=== PATIENT | female | born 1985 | race Hispanic/Latino ===

== ENCOUNTER 2018-04-05 19:53 | Emergency (ER) | payer OTHER ==
[2018-04-05 20:14] VITALS: PULSE 73; RESP 17; TEMP 98.7; O2SAT 98
[2018-04-05] MEDS ORDERED: Lidocaine PF 2% (5 ml) Inj (For Cardiac Arrhy) IV STA (20:32)
--- NOTE | 2018-04-05 20:39 | ED PDOC ---
Upper Extremity Pain/Injury Time Seen by Provider: 04/05/18 20:17 Chief Complaint (Nursing): Finger,Hand,&Wrist Chief Complaint (Provider): left index finger injury History Per: Patient History/Exam Limitations: no limitations Onset/Duration Of Symptoms: Hrs (today) Current Symptoms Are (Timing): Still Present Additional Complaint(s): Lucina Jolly is a 32 year old right hand dominant female, with no significant past medical history, who presents to the emergency department for evaluation of left index finger laceration. Patient reports cutting her left index finger with a knife while making dinner earlier this evening. She initially went to [facility] but was sent to the ED for evaluation. Patient states bleeding has not stopped. Tetanus is up to date. She denies any numbness or tingling to affected area. PMD: None Past Medical History Reviewed: Historical Data, Nursing Documentation, Vital Signs Vital Signs: Last Vital Signs Temp 98.7 F 04/05/18 20:10 Pulse 73 04/05/18 20:10 Resp 17 04/05/18 20:10 BP Pulse Ox 98 04/05/18 20:10 - Medical History PMH: No Chronic Diseases - Surgical History Surgical History: No Surg Hx - Family History Family History: States: No Known Family Hx - Living Arrangements Living Arrangements: With Family - Social History Current smoker - smoking cessation education provided: No Alcohol: None Drugs: Denies - Immunization History Hx Tetanus Toxoid Vaccination: Yes - Allergies Allergies/Adverse Reactions: Allergies Allergy/AdvReac Type Severity Reaction Status Date / Time No Known Allergies Allergy Verified 04/05/18 20:10 Review of Systems ROS Statement: Except As Marked, All Systems Reviewed And Found Negative Musculoskeletal: Positive for: Hand Pain (left index finger laceration) Physical Exam - Reviewed Nursing Documentation Reviewed: Yes Vital Signs Reviewed: Yes - Physical Exam Appears: Positive for: Well, Non-toxic, No Acute Distress Skin: Positive for: Normal Color. Negative for: Rash Eye Exam: Positive for: Normal appearance Extremity: Positive for: Normal ROM (Full ROM of left index finger), Other (2 cm laceration to palmar aspect of left index finger with mild active bleeding, normal sensation surrounding wound, normal distal sensation). Negative for: Deformity Neurologic/Psych: Positive for: Alert, Oriented - ECG O2 Sat by Pulse Oximetry: 98 (RA) Pulse Ox Interpretation: Normal Medical Decision Making Medical Decision Making: Time: 20:17 Initial Impression: Left index finger laceration Initial Plan: --Lidocaine 2% [address] Castano, hand surgeon, completed repair of laceration at bedside. Patient was instructed to follow up as directed. Scribe Attestation: Documented by Devon Prince, acting as a scribe for Brittany Schulz PA-C Provider Scribe Attestation: All medical record entries made by the Scribe were at my direction and personally dictated by me. I have reviewed the chart and agree that the record accurately reflects my personal performance of the history, physical exam, medical decision making, and the department course for this patient. I have also personally directed, reviewed, and agree with the discharge instructions and disposition. Disposition - Clinical Impression Clinical Impression: Finger laceration - Patient ED Disposition Is Patient to be Admitted: No Counseled Patient/Family Regarding: Need For Followup - Disposition Referrals: Mira Castano MD [Medical Doctor] - Disposition: Routine/Home Disposition Time: 21:03 Condition: STABLE Additional Instructions: Follow up in Dr. Castano's office in 10 days. Instructions: Laceration Repair With Stitches (DC) Forms: [employer] (Irish)
--- NOTE | 2018-04-12 23:36 | OP ---
PROCEDURE DATE: 04/05/2018 PREOPERATIVE DIAGNOSES: As follows: 1. Left index finger 1.8-cm laceration. 2. Proximal left index finger flexor digitorum brevis tendon laceration. POSTOPERATIVE DIAGNOSES: As follows: 1. Left index finger 1.8-cm laceration. 2. Proximal left index finger flexor digitorum brevis tendon laceration. PROCEDURE PERFORMED: As follows: Exploration of left index finger penetrating wound. ANESTHESIA: Regional: 1. Left index finger radial digital nerve block. 2. Left index finger ulnar digital nerve block. INDICATIONS FOR PROCEDURE: As follows. Please refer to my separately dictated ER consultation for history and physical. DESCRIPTION OF PROCEDURE: As follows: Marcaine 0.5% mixed with 1% lidocaine was used in the right index finger radial and ulnar digital nerve block. After allowing sufficient time for the anesthetic to take effect, the wound was thoroughly irrigated with normal saline diluted Betadine. The area was prepped and draped in the usual clean and sterile manner. A tourniquet was placed at the base of the left index finger which I removed at the end of the case. I made the incision larger with the scissor and explored with a blunt clamp. The flexor tendons and digital nerves were all intact. I then closed the skin in an interpreted fashion with 4-0 nylon sutures. I removed the tourniquet and placed Xeroform, dry sterile dressing. The patient tolerated the procedure well and was discharged home from the emergency room in stable condition. Postoperative wound care, limitation of physical activities, the fact that there will be a scar, the prognosis which is unknown, and the need to follow up and re-examine the patient were discussed and all questions were answered. Mira Castano MD
--- NOTE | 2018-04-13 08:49 | CON ---
DATE: 04/05/2018 EMERGENCY ROOM CONSULTATION SURGEON: Mira Castano MD HISTORY OF PRESENT ILLNESS: This is a 32-year-old right hand dominant female who cut her left index finger with a knife while cutting bread at home. She presented to the emergency room with a laceration over the volar aspect of the left index finger. It is 1.8 cm length of the middle phalanx. There was concern for tendon injury since the patient has weakness flexing her left index finger. 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 PHYSICAL EXAMINATION: On physical exam, she is neurovascularly intact. There is negative Tinel's sign. There is good capillary refill to the tip of the left index finger, it is nontender. There was a 1.8 cm transverse laceration of the left index finger middle phalanx. The patient was able to flex the DIP and PIP joints indicating grossly intact flexor digitorum profundus tendon, but she has limitations in flexion. In her left index finger at the PIP joint, there was a possible FDS tendon laceration. I explained to the patient in the ER. Based on the injury, we need to be fixing up in timely manner. Risks and benefits were discussed and all questions were answered. I will separate operative report. Mira Castano MD MTDD
== END 2018-04-05 22:10 | disposition home or self-care (01) ==
LOC: H.ER 19:53
DX: S61.211A Laceration without foreign body of left index finger without damage to nail, initial encounter (principal); W26.0XXA Contact with knife, initial encounter